=== PATIENT | female | born 1995 ===

== ENCOUNTER 2021-09-05 10:39 | Emergency (ER) | payer SELFPAY ==
--- NOTE | 2021-09-05 13:38 | Emergency Department Report ---
<LINO CHEN - Last Filed: 09/05/21 14:56> ED Female HPI - General Chief complaint: Urogenital-Female Stated complaint: ODOR Time Seen by Provider: 09/05/21 13:15 Source: patient Mode of arrival: Ambulatory Limitations: Language Barrier - History of Present Illness Initial comments: freelance interpreter/translator used. 25-year-old female presents to the ER today with complaints of UTI symptoms. Patient states her symptoms started 1 week ago. She reports dysuria, urinary frequency and urgency as well as lower abdominal discomfort and lower back pain. She states that she has been taking multiple pxoo-fug-vpkffli medications to see if it would help without much relief. She denies any vaginal discharge, hematuria, nausea, vomiting, fever or chills. She states that her last menstrual cycle was May 10, 2021. She states that she has had UTI before in the past but was about 3 years ago. MD Complaint: dysuria -: week(s) (1) - Related Data Previous Rx's Medication Instructions Recorded Last Taken Type Phenazopyridine [Pyridium] 200 mg PO TID PRN #10 tab 09/05/21 Unknown Rx cephALEXin [Keflex] 500 mg PO Q6HR #40 capsule 09/05/21 Unknown Rx Allergies Allergy/AdvReac Type Severity Reaction Status Date / Time No Known Allergies Allergy Unverified 09/05/21 11:16 ED Review of Systems Comment: All other systems reviewed and negative Constitutional: denies: chills, fever Eyes: denies: eye pain, eye discharge, vision change ENT: denies: ear pain, throat pain Respiratory: denies: cough, shortness of breath, SOB with exertion, SOB at rest, wheezing Cardiovascular: denies: chest pain, palpitations, dyspnea on exertion, edema, syncope, paroxysmal nocturnal dyspnea Gastrointestinal: abdominal pain. denies: nausea, vomiting, diarrhea, constipation, hematemesis, melena, hematochezia Genitourinary: urgency, dysuria, frequency. denies: hematuria, discharge, abnormal menses, dyspareunia Musculoskeletal: back pain Skin: denies: rash, lesions Neurological: denies: headache, weakness, numbness, paresthesias, confusion, abnormal gait, vertigo ED Past Medical Hx - Past Medical History Previous Medical History?: No - Surgical History Past Surgical History?: No - Social History Smoking Status: Never Smoker Substance Use Type: None - Medications Home Medications: Home Medications Medication Instructions Recorded Confirmed Last Taken Type Phenazopyridine [Pyridium] 200 mg PO TID PRN #10 tab 09/05/21 Unknown Rx cephALEXin [Keflex] 500 mg PO Q6HR #40 capsule 09/05/21 Unknown Rx ED Physical Exam - General Limitations: Language Barrier General appearance: alert, in no apparent distress - Head Head exam: Present: atraumatic, normocephalic, normal inspection - Eye Eye exam: Present: normal appearance, PERRL, EOMI Pupils: Present: normal accommodation - Respiratory Respiratory exam: Present: normal lung sounds bilaterally. Absent: respiratory distress - Cardiovascular Cardiovascular Exam: Present: regular rate, normal rhythm, normal heart sounds - GI/Abdominal GI/Abdominal exam: Present: soft. Absent: distended, tenderness (mild suprapubic ttp ) - Neurological Exam Neurological exam: Present: alert, oriented X3, CN II-XII intact, normal gait - Psychiatric Psychiatric exam: Present: normal affect, normal mood - Skin Skin exam: Present: intact ED Medical Decision Making - Medical Decision Making 25-year-old female presents to the ER today with complaints of UTI symptoms. Patient states her symptoms started 1 week ago. She reports dysuria, urinary frequency and urgency as well as lower abdominal discomfort and lower back pain. She states that she has been taking multiple ilep-fbf-bccbhtj medications to see if it would help without much relief. She denies any vaginal discharge, hematuria, nausea, vomiting, fever or chills. She states that her last m enstrual cycle was May 10, 2021. She states that she has had UTI before in the past but was about 3 years ago. Urinalysis positive for UTI. hCG is negative. Patient is well-appearing, nontoxic and not in any significant distress. She appears well-hydrated. She is neurologically intact with a normal gait. She has a nonsurgical abdominal exam. Vital signs reviewed and normal. Patient will be treated for UTI with antibiotics, she will also be given Pyridium to help her symptoms. Recommend that she increase her water intake. Recommend follow-up with her PCP in 1 week. Patient expressed understanding of all instructions and agree with plan. Patient was stable at time of discharge ED Disposition Clinical Impression: UTI (urinary tract infection) Disposition: HOME / SELF CARE / HOMELESS Is pt being admited?: No Does the pt Need Aspirin: No Condition: Stable Instructions: Antibiotic Medicine, Adult, [id number], Urinary Tract Infection, Adult Additional Instructions: I recommend that you take the keflex as prescribed and to completion. Take the pyridium to help with your symptoms. I will turn your urine orange red which is normal. Take it as prescribed. Increase your water intake. Follow - up with your PCP in 1 week. Return to ED if worse. Prescriptions: cephALEXin [Keflex] 500 mg PO Q6HR #40 capsule Phenazopyridine [Pyridium] 200 mg PO TID PRN #10 tab PRN Reason: dysuria Referrals: MIRIAN MOYA MD [Staff Physician] - 3-5 Days Time of Disposition: 14:06 <ELIZA BRIZUELA - Last Filed: 09/05/21 15:37> ED Review of Systems ROS: Stated complaint: ODOR Other details as noted in HPI ED Course Vital Signs 09/05/21 09/05/21 11:10 14:33 Temperature 98.4 F 97.8 F Pulse Rate 87 80 Respiratory 18 16 Rate Blood Pressure 116/71 Blood Pressure 110/72 [Right] O2 Sat by Pulse 100 99 Oximetry ED Medical Decision Making - Lab Data Vital Signs 09/05/21 09/05/21 11:10 14:33 Temperature 98.4 F 97.8 F Pulse Rate 87 80 Respiratory 18 16 Rate Blood Pressure 116/71 Blood Pressure 110/72 [Right] O2 Sat by Pulse 100 99 Oximetry Lab Results 09/05/21 Range/Units Unknown Urine Color Yellow (Yellow) Urine Turbidity Cloudy (Clear) Urine pH 5.0 (5.0-7.0) Ur Specific [place] 1.021 (1.003-1.030) Urine Protein 30 mg/dl (Negative) mg/dL Urine Glucose (UA) Neg (Negative) mg/dL Urine Ketones Neg (Negative) mg/dL Urine Blood Sm (Negative) Urine Nitrite Pos (Negative) Urine Bilirubin Neg (Negative) Urine Urobilinogen < 2.0 (<2.0) mg/dL Ur Leukocyte Esterase Lg (Negative) Urine WBC (Auto) > 182.0 H (0.0-6.0) /HPF Urine RBC (Auto) 11.0 (0.0-6.0) /HPF U Epithel Cells (Auto) 5.0 (0-13.0) /HPF Urine Mucus Few /HPF Urine HCG, Qual Negative (Negative) Critical care attestation.: If time is entered above; I have spent that time in minutes in the direct care of this critically ill patient, excluding procedure time. ED Disposition Is pt being admited?: No Does the pt Need Aspirin: No
[2021-09-05 13:49] LABS: Bilirubin,Urine NEG (Negative); Blood,Urine SM (Negative); Color,Urine Yellow (Yellow); Mucus,Urine FEW /HPF; Urobilinogen,Urine < 2.0 mg/dL (<2.0)
[2021-09-05 13:50] LABS: WBC,Urine > 182.0 /HPF (0.0-6.0)
[2021-09-05 13:51] LABS: HCG Qualitative,Urine Negative (Negative)
[2021-09-05 14:34] VITALS: BP 110/72
== END 2021-09-05 14:36 | disposition home or self-care (01) ==
LOC: ED 10:39
DX: N39.0 Urinary tract infection, site not specified (principal)
CPT/HCPCS: 81001; 81025; 87076; 87086; 87186; 99283